=== PATIENT | female | born 1940 | race Caucasian/White ===

== ENCOUNTER 2016-11-05 11:34 | Inpatient (IN) | payer OTHER ==
[2016-11-05] MEDS ORDERED: clonazePAM 0.5 MG TAB PO PRN (12:50)
[2016-11-05] MEDS ORDERED: clonazePAM 1 MG TAB PO PRN (12:53)
[2016-11-05] MEDS ORDERED: Cyanocobalamin 1000 MCG/ML VIAL IM SCH (13:00)
[2016-11-05] MEDS ORDERED: Ondansetron ODT 4 MG TAB PO PRN (13:04)
[2016-11-05] MEDS ORDERED: Guaifenesin DM 100-10/5 ML UDCUP PO PRN (13:04)
[2016-11-05] MEDS ORDERED: Milk Of Magnesia 30 ML UDCUP PO PRN (13:04)
[2016-11-05 14:17] VITALS: BMI 22.1
[2016-11-05] MEDS: PHENobarbital 32.4 MG TAB PO SCH (20:43)
[2016-11-05] MEDS ORDERED: PHENOBARBITAL PO SCH (21:00)
--- NOTE | 2016-11-05 21:39 | HP ---
DATE OF ADMISSION: 11/05/2016 HISTORY OF PRESENT ILLNESS: Mrs. Drake is a 76-year-old very pleasant white female that I [facility]. Apparently, she was admitted to [facility] wit h multiple seizures, eventually had significant disability and weakness. She was transferred to [facility] and was there for approximately 10 days. She did much better, was able t o walk, her decided to take her home rather than sending her to a rehabilitation skilled fac ility for continued physical therapy and occupational therapy. She is able to stand basically which she left home and basically transfer. Since she has been home, she got much weaker and was unable to stand at this time. She was seen in consultation by Dr. Tapia who recommended that she go to a skilled unit for physical therapy and occupational therapy. Insurance was contacted and she is ap proved to come. PAST MEDICAL HISTORY: Significant for multiple medical problems includin. Hypertension. 2. Hypothyroidism. 3. Rheumatoid arthritis. 4. Stomach cancer. 5. B12 deficiency anemia. 6. Septal defect. 7. Mitral valve regurgitation. 8. Arthritis. 9. Seizure disorder. 10. Generalized weakness. PAST SURGICAL HISTORY: 1. Cholecystectomy. 2. Hysterectomy. 3. Bilateral cataract surgery. 4. Total knee replacement on the right, 5. Bladder suspension. 6. Left reverse total shoulder replacement 12/2014. 7. Right reverse total shoulder repair 02/05/2016. 8. Partial gastrectomy, status post stomach cancer 11/2015. 9. Cataract surgery. FAMILY HISTORY: Reveals that the patient's father had CA and at the age of 70 and he had a his tory of diabetes. The patient also has syphilitic aneurysm of the aorta. Patient's mother at age of 89 of CA, but she also had diabetes. Patient has a brother with lung cancer. SOCIAL HISTORY: Reveals the patient does not smoke, does not drink, is , does not use any re creational drugs. PRESENT MEDICATIONS: She is presently on the followin. Tylenol 500 mg q.6 hours p.r.n. 2. Amlodipine 2.5 mg each morning. 3. Aspirin 81 mg daily. 4. Clonazepam 0.5 one or two tablets OTC or sublingually at onset of seizure, not to exceed 3 mg da raffaele. 5. Plavix 75 mg. 6. Cyanocobalamin which is vitamin B12 1000 mcg IM every 28 days. 7. Phenobarbital 64 mg in the morning and 45 mg in the evening, Dilantin 125 mg per 5 mL and the pa tient gets 5 mL twice daily. 8. Florastor 250 mg daily. 9. [place] Thyroid 60 mg daily. ALLERGIES: Patient has multiple allergies include the followin. PENICILLIN. 2. KEFLEX. 3. LISINOPRIL. 4. CODEINE. 5. HYDROCODONE. 6. SIMVASTATIN. 7. CRESTOR. 8. VYTORIN. 9. REGULAR STATINS. 10. CHOLESTYRAMINE which causes her to absorb of her anti-seizure medicines and have seizures. 11. TRAMADOL, unknown reaction. 12. GABAPENTIN. 13. PREVITE RX. REVIEW OF SYSTEMS: Reveal the patient states she is fatigued, seem like she is maybe losing weight. Denies any vision changes, like double vision, loss of vision or blurry vision. Denies any signif icant change in her hearing. Denies any chest pain, racing or skipping or slow heartbeats, passing out or fainting spells. Denies any cough, cold, congestion, shortness of breath or wheezing. Denie s any nausea, vomiting, diarrhea, constipation. She does have a history of stomach cancer with stom ach resection or partial resection. Denies any difficulty with her bladder. She does complain of m usculoskeletal weakness and some muscle pain and joint pain at that time. She denies any skin probl ems including rash or lesions. She does complain of seizures, but none lately. She has significant weakness along with occasional dizziness, headache and numbness. She does have anxiety and stress, is extremely forgetful. She denies any bleeding problems, lymph node problems. Denies any signifi cant allergies. PHYSICAL EXAMINATION: GENERAL: This is a thin, well-developed, well-nourished, oriented to person, place, but not time, t hin white female in no apparent distress at this time. HEENT: Reveals normocephalic, nontraumatic cranium. Pupils are equally round. Nose and throat are slightly dry. NECK: Supple, without masses, nodes or bruits. CHEST: Clear to auscultation. No rales, rhonchi or wheezes are heard. HEART: Reveals a regular rate and rhythm, no murmurs, gallops or rubs are noted. ABDOMEN: Scaphoid, soft, nontender, without organomegaly. No rebound or guarding is noted. GENITOURINARY: Deferred. EXTREMITIES: Reveal no clubbing, cyanosis or edema. 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 The right upper extremity is weaker than the right lower extremity. The patient does have a very sl ight intention tremor. She is sensitive to light touch, temperature, vibration and proprioception. ASSESSMENT: 1. Hypertension. 2. Seizure disorder. 3. Generalized weakness. 4. Rheumatoid arthritis. 5. History of prior malignant tumor of the stomach, resected. 6. Hypothyroidism. 7. Renal mass found on CT scan 01/2015. 8. Vitamin B12 deficiency. 9. Hypercholesterolemia. 10. Hyperlipidemia. 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 12. Sensory neuropathy. 13. Generalized weakness and debility. PLAN: 1. We will consult physical therapy and occupational therapy. 2. Evaluate with Speech Therapy also. 3. Continue present medications. 4. Follow the patient closely for seizure disorder. 5. Follow the patient's thyroids. 6. Follow the patient's blood pressure. 7. Stress ulcer and decubitus prophylaxis. 8. DVT prophylaxis.
[2016-11-05 22:58] LABS: Bilirubin Negative (Negative); Blood, Urine Negative (Negative); Glucose, Urine (Dipstick) Negative (Negative); Ketone, Urine Negative (Negative); Nitrite Negative (Negative); Protein, Urine (Dipstick) Negative (Neg-Trace); RBC/HPF None Seen HPF (0-3); Urobilinogen 0.2 mg/dL (0.2-1.0); WBC/HPF None Seen HPF (0-3)
[2016-11-05 22:59] LABS: Bacteria/HPF None Seen HPF (None Seen)
[2016-11-06 05:21] LABS: #Eosinphils 0.3 thou/uL (0.0-0.7); #Lymphocytes 1.1 thou/uL (1.20-3.40); #Monocytes 0.3 thou/uL (0.11-0.59); #Neutrophils 2.1 thou/uL (1.40-6.50); %Eosinophils 8.5 % (0.0-10.0); %Lymphocytes 28.4 % (21.0-51.0); %Monocytes 8.5 % (0.0-10.0); Hematocrit 30.6 % (36.0-47.0); Mean Platelet Volume 5.8 fL (7.4-10.4)
[2016-11-06 05:42] LABS: ALT (SGPT) 26 U/L (0-55); AST (SGOT) 23 U/L (5-34); Alkaline Phosphatase 97 U/L (40-150); Anion Gap 12 mmol/L (10-20); BUN (Urea Nitrogen) 12 mg/dL (9.8-20.1); Bilirubin, Total 0.1 mg/dL (0.2-1.2); Calc. Creatinine Clearance 73 mL/min (70-130); Calcium 8.6 mg/dL (7.8-10.44); Carbon Dioxide 22 mmol/L (23-31); Chloride 110 mmol/L (98-107); Estimated GFR-MDRD Greater than 90; Globulin 2.2 g/dL (2.4-3.5); Protein, Total 4.9 g/dL (5.8-8.1)
[2016-11-06] MEDS: Saccharomyces boulardii 250 MG CAP PO SCH (08:59)
[2016-11-06] MEDS: Multivitamin W/ Minerals 1 TAB PO SCH (08:59)
[2016-11-06] MEDS: PHENobarbital 32.4 MG TAB PO SCH ×2 (09:00→21:22)
[2016-11-06] MEDS: Clopidogrel Bisulfate 75 MG TAB PO SCH (09:03)
--- NOTE | 2016-11-06 21:23 | PRG ---
DATE OF SERVICE: 11/06/2016. HISTORY OF PRESENT ILLNESS: Ms. Drake is a 76-year-old very pleasant white female who recognizes me immediately upon entering the room. She was transferred from home because she has some increase d strengthening on her strength and stability. She previously was at [facility], was seen by Dr. Tapia who recommended that she come by this Skilled Unit for physical therap y and occupational therapy. She was approved for insurance for 10 days. She previously was able to help transfer and walk before she went home for rehabilitation. Since she has been home, she has n ot been able to get up and move. So, she therefore goes to get her back and move. SUBJECTIVE: The patient states she is doing well. She is eating well. She has no complaints. She has no pain. OBJECTIVE: Vital signs this morning revealed blood pressure was 149/67, pulse ranges between 65 and 70, respirations are 18, O2 saturations 97 to 78%, temperature is 97.7. PHYSICAL EXAMINATION: GENERAL: This is a well-developed, very thin white female, in no apparent distress at this time. HEENT: Reveals normocephalic, nontraumatic cranium. Pupils are equally round and reactive. Extrao cular movements intact. Nose and throat slightly dry. NECK: Supple, without masses, nodes or bruits. CHEST: Clear to auscultation. No rales, rhonchi, wheezes are heard. CARDIOVASCULAR: Reveals a regular rate and rhythm without murmurs, gallops or rubs. ABDOMEN: Scaphoid, soft, nontender, without organomegaly, normal bowel sounds are noted. No reboun d or guarding is noted. GENITOURINARY: Deferred. EXTREMITIES: Reveal no clubbing, cyanosis or edema, but generalized weakness. NEUROLOGIC: The patient has more weakness on the right secondary to an old cerebrovascular accident . The patient does have a slight intention tremor. She also sensitive to light touch, temperature, vibration and proprioception. Vital signs done this morning revealed a white count of 4000, hemoglobin 10.1, hematocrit 30.6 with a platelet count of 198,000. LABORATORY DATA: Sodium 140, potassium 3.8, chloride 110 with a carbon dioxide of 22. BUN is 12, c reatinine 0.55 and GFR is greater than 90. Her albumin is low at 2.7 and globulin is low at 2.2. We did do a urinalysis which revealed no white cells. ASSESSMENT: 1. Hypertension. 2. Hypothyroidism. 3. Rheumatoid arthritis. 4. Stomach cancer, status post resection. 5. Vitamin B12 deficiency. 6. Septal defect. 7. Mitral valve regurgitation. 8. Arthritis. 9. Seizure disorder. 10. Generalized weakness and debility. 11. Renal mass found on CT scan of 01/20/2015. 12. Hypercholesterolemia. 13. Hyperlipidemia. 14. Megaloblastic anemia due to vitamin B12 deficiency. 15. Sensory neuropathy. PLAN: 1. The patient has been evaluated by physical therapy and occupational therapy. 2. We will continue physical therapy and occupational therapy. 3. Evaluate for speech therapy next week. 4. Continue present medications. 5. Watch the patient closely for seizure disorder. 6. Watch patient's thyroids. 7. Watch patient's blood pressure. 8. Stress ulcer and deep venous thrombosis prophylaxes. 9. Decubitus prophylaxis and care.
--- NOTE | 2016-11-07 08:58 | PRG ---
DATE OF SERVICE: 11/07/2016 HISTORY OF PRESENT ILLNESS: Ms. Drake is a very pleasant 76-year-old white female, recognizes me again this morning when I entered the room. She has no complaints, states she slept fairly well last night. She did wake up a couple of times. She realized that she was sent here for physical therapy and occupational therapy by Dr. Tapia. She is unable to walk and was transferred here so that she can start walking again. She was standin g and taking couple [facility] SUBJECTIVE: The patient states she is doing well. She has no complaints this morning. PHYSICAL EXAMINATION: VITAL SIGNS: Revealed last blood pressure was last night at bedtime was 147/67, pulse 65-67, respir ations 18, O2 sat 97%-98%, T-max was 97.7. GENERAL: This is a well-developed, well-nourished, very pleasant white female, in no apparent distr ess that is by seizure disorder. HEENT: Reveals normocephalic, nontraumatic cranium. Pupils are equally round and reactive. Extrao cular movements intact. Nose and throat slightly dry. NECK: Supple, without masses, nodes or bruits. CHEST: Clear to auscultation. No rales, rhonchi or wheezes are heard. HEART: Reveals a regular rate and rhythm without murmurs, gallops or rubs. ABDOMEN: Scaphoid, soft, nontender, without organomegaly, normal bowel sounds are noted. No reboun d or guarding is noted. GENITOURINARY: Deferred. EXTREMITIES: Reveal no clubbing, cyanosis or edema, which is generalized weakness. NEUROLOGIC: The patient has slightly more weakness on the right side secondary to old CVA. The pat ient continues to have slight intention tremor. ASSESSMENT: 1. Hypertension. 2. Hypothyroidism. 3. Rheumatoid arthritis. 4. Stomach cancer, status post resection. 5. Vitamin B12 deficiency. 6. Atrioseptal defect. 7. Mitral valve regurgitation. 8. Arthritis. 9. Seizure disorder. 10. Generalized weakness and debility. 11. Renal mass. Final CT scan on 01/20/2015. 12. Hypercholesterolemia. 13. Hyperlipidemia. 14. Megaloblastic anemia due to vitamin B12 deficiency. 15. Sensory neuropathy. PLAN: 1. Continue physical therapy and occupational therapy. 2. Evaluate for speech therapy. 3. Continue present medications. 4. Watch for seizure disorder and she is to get Klonopin if that happens. 5. Pharmacy in the nurse felt that her thyroid is being mixed with other medicines, which is not a good thing, so she gets it on an empty stomach. 6. Continue to follow the patient's blood pressure closely. 7. Follow up for stress ulcer and DVT prophylaxis. 8. Continue decubitus precautions.
[2016-11-07] MEDS: Multivitamin W/ Minerals 1 TAB PO SCH (09:06)
[2016-11-07] MEDS: PHENobarbital 32.4 MG TAB PO SCH ×2 (09:06→20:23)
[2016-11-07] MEDS: Loperamide HCl 2 MG CAP PO PRN ×2 (09:06→11:20)
[2016-11-07] MEDS: Saccharomyces boulardii 250 MG CAP PO SCH (09:06)
[2016-11-07] MEDS: Clopidogrel Bisulfate 75 MG TAB PO SCH (09:06)
[2016-11-07] MEDS: Acetaminophen 500 MG TAB PO PRN (20:24)
[2016-11-08] MEDS: Saccharomyces boulardii 250 MG CAP PO SCH (08:20)
[2016-11-08] MEDS: PHENobarbital 32.4 MG TAB PO SCH ×2 (08:20→21:28)
[2016-11-08] MEDS: Multivitamin W/ Minerals 1 TAB PO SCH (08:21)
[2016-11-08] MEDS: Clopidogrel Bisulfate 75 MG TAB PO SCH (08:21)
--- NOTE | 2016-11-08 10:50 | PRG ---
DATE OF SERVICE: 11/08/2016 HISTORY OF PRESENT ILLNESS: Ms. Drake is a 76-year-old white female that was transferred here fo r physical therapy and occupational therapy because of significant disability and weakness. The patient had a good night. She has no complaints. Her daughter is in the room. They have no co mplaints except she is having some loose stools and has Imodium ordered which she can ask for p.r.n. VITAL SIGNS: Vital signs this morning reveal blood pressure last night was 142/65, pulse 68-71, res pirations 16-20, O2 sat 95%, T-max 97.7. PHYSICAL EXAMINATION: GENERAL: This is a well-developed, well-nourished, thin white female in no apparent distress at thi s time. HEENT: Reveals normocephalic, nontraumatic cranium. Pupils are equally round and reactive. Extrao cular movements intact. Nose and throat slightly dry. NECK: Supple, without masses, nodes or bruits. LUNGS: Chest is clear to auscultation. No rales, no rhonchi, no wheezes. No cough is heard. CARDIOVASCULAR: Reveals a regular rate and rhythm without murmurs, gallops or rubs. ABDOMEN: Scaphoid, soft, nontender, without organomegaly, normal bowel sounds are noted. No reboun d or guarding is noted. : Deferred. EXTREMITIES: Reveal no clubbing, cyanosis or edema, just generalized weakness. NEUROLOGIC: The patient is slightly more weak to the right side secondary to old CVA. IMPRESSION: 1. Hypertension. 2. Hypothyroidism. 3. Rheumatoid arthritis. 4. Stomach cancer, status post resection. 5. Vitamin B12 deficiency leading to megaloblastic anemia. 6. Atrial septal defect. 7. Mitral regurgitation. 8. Arthritis. 9. Seizure disorder. 10. Generalized weakness and debility. 11. Renal mass on CT scan on 01/2015. 12. Hypercholesterolemia. 13. Hyperlipidemia. 14. Sensory neuropathy. PLAN: 1. Continue physical therapy and occupational therapy. 2. Evaluate for speech is pending. 3. Continue present medications. 4. Watch for seizure disorder. 5. Continue thyroid. 6. Wean Dilantin as able. 7. Continue phenobarbital. 8. Stress ulcer and deep venous thrombosis prophylaxis. 9. Continue decubitus precautions.
[2016-11-08] MEDS: Acetaminophen 500 MG TAB PO PRN (21:28)
[2016-11-09] MEDS: Clopidogrel Bisulfate 75 MG TAB PO SCH (08:36)
[2016-11-09] MEDS: Saccharomyces boulardii 250 MG CAP PO SCH (08:37)
[2016-11-09] MEDS: PHENobarbital 32.4 MG TAB PO SCH ×2 (08:37→21:28)
[2016-11-09] MEDS: Multivitamin W/ Minerals 1 TAB PO SCH (08:37)
--- NOTE | 2016-11-09 10:18 | PRG ---
DATE OF SERVICE: 11/09/2016 HISTORY OF PRESENT ILLNESS: Ms. Drake is a 76-year-old white female transferred here for physica l therapy, occupational therapy because of his significant debility and weakness. The patient dionisio nunez has already been up and walking approximately 15 feet with a short rest and another 15 feet whic h is good for her. She still has significant difficulty getting up. Her is down here and carey faulkner is very pleased, but states that he cannot bring her home unless she is much more independent. VITAL SIGNS: Vital signs this morning revealed blood pressure 135/65, pulse 66-70, respirations 18- 20, O2 sat 96-97%. T-max is 97.2. PHYSICAL EXAMINATION: GENERAL: This is a well-developed, very thin white female in no apparent distress at this time. HEENT: Reveals normocephalic, nontraumatic cranium. Pupils are equally round and reactive. Extrao cular movements are intact. Nose and throat slightly dry. NECK: Supple, without masses, nodes or bruits. CHEST: Clear to auscultation. No rales, rhonchi or wheezes are heard. CARDIOVASCULAR: Reveals a regular rate and rhythm without murmurs, gallops or rubs. ABDOMEN: Soft, nontender, without organomegaly, normal bowel sounds are noted. No rebound or guard ing is noted. : Deferred. EXTREMITIES: Reveal no clubbing, cyanosis or edema, just generalized weakness. NEUROLOGIC: The patient is still weak, slightly weaker on the right side than the left side. IMPRESSION: 1. Hypertension. 2. Hypothyroidism. 3. Rheumatoid arthritis. 4. Stomach cancer, status post resection. 5. Vitamin B12 deficiency leading to megaloblastic anemia. 6. Atrial septal defect. 7. Mitral regurgitation. 8. Arthritis. 9. Seizure disorder. 10. Generalized weakness and debility. 11. Renal mass on CT scan on 01/2015. 12. Hypercholesterolemia. 13. Hyperlipidemia. 14. Sensory neuropathy. PLAN: 1. Continue physical therapy and occupational therapy. 2. Continue DVT and stress ulcer prophylaxis. 3. Continue decubitus precautions. 4. Continue present medications. 5. Watch out for seizure disorder. 6. Continue thyroid medications. 7. Wean Dilantin as able. 8. Continue phenobarbital. 9. Continues with patient being out of bed as much as possible.
[2016-11-09] MEDS: Acetaminophen 500 MG TAB PO PRN (21:28)
[2016-11-10] MEDS: Clopidogrel Bisulfate 75 MG TAB PO SCH (09:36)
[2016-11-10] MEDS: PHENobarbital 32.4 MG TAB PO SCH ×2 (09:36→21:40)
[2016-11-10] MEDS: Multivitamin W/ Minerals 1 TAB PO SCH (09:36)
[2016-11-10] MEDS: Saccharomyces boulardii 250 MG CAP PO SCH (09:38)
--- NOTE | 2016-11-10 11:14 | PRG ---
DATE OF SERVICE: 11/10/2016 SUBJECTIVE: Ms. Drake is a 76-year-old white female transferred here for physical therapy, occup ational therapy because of her extreme weakness. She has been up walking about 60 feet yesterday. She actually is doing very well. She still has difficulty and is 2 person assist getting up. Her h usband is pleased, but he is not able to take her home unless she can get a 1 person assist for gett ing up. VITAL SIGNS: Blood pressure this morning was 162/71, pulse 66-71, respirations 18-20, O2 sat 97-98% , T-max was 98.5. PHYSICAL EXAMINATION: GENERAL: This is a well-developed, thin white female in no apparent distress at this time. HEENT: Reveals normocephalic, nontraumatic cranium. Pupils are equally round and reactive. Extrao cular movements intact. Nose and throat slightly dry. NECK: Supple, without masses, nodes or bruits. CHEST: Clear to auscultation. No rales, rhonchi or wheezes are heard. CARDIOVASCULAR: Reveals a regular rate and rhythm without murmurs, gallops or rubs. ABDOMEN: Soft, nontender, without organomegaly, normal bowel sounds are noted. No rebound or guard ing is noted. : Deferred. EXTREMITIES: Reveal no clubbing, cyanosis or edema. Just generalized weakness. IMPRESSION: 1. Hypertension. 2. Hypothyroidism. 3. Rheumatoid arthritis. 4. Stomach cancer, status post resection. 5. Vitamin B12 deficiency leading to megaloblastic anemia. 6. Atrial septal defect. 7. Mitral regurgitation. 8. Arthritis. 9. Seizure disorder. 10. Generalized weakness and debility. 11. Renal mass on CT scan 01/2015. 12. Hypercholesterolemia. 13. Hyperlipidemia. 14. Sensory neuropathy. PLAN: 1. Continue physical therapy and occupational therapy. 2. Continue DVT and stress ulcer prophylaxis. 3. Continue decubitus precautions. 4. Continue present medications. 5. Watch out for seizure disorder. 6. Continue thyroid medications. 7. Wean Dilantin as able. 8. We will continue phenobarbital. 9. Continue the patient being out of bed as much as possible.
[2016-11-11] MEDS: Clopidogrel Bisulfate 75 MG TAB PO SCH (08:33)
[2016-11-11] MEDS: Saccharomyces boulardii 250 MG CAP PO SCH (08:33)
[2016-11-11] MEDS: Multivitamin W/ Minerals 1 TAB PO SCH (08:34)
[2016-11-11] MEDS: PHENobarbital 32.4 MG TAB PO SCH ×2 (08:34→21:21)
[2016-11-11] MEDS: Loperamide HCl 2 MG CAP PO PRN ×2 (08:35→10:30)
--- NOTE | 2016-11-11 13:30 | PRG ---
DATE OF ADMISSION: 11/05/2016 DATE OF SERVICE: 11/11/2016 HISTORY OF PRESENT ILLNESS: Ms. Drake is a 76-year-old white female that was at [facility] for physical therapy and occupational therapy. She was discharged home, but she recommen d to go to [facility]. Her decided to take her home. He was unable to help her and she went from standing, walking to not being able to stand. This morning, she was stood with a max assist, but was able to walk and take several feet and she is in the room right now with physical therapy. Her complains that she is having some loose stools a couple this morning. She is incontinen t and does not feel when she has a bowel movement. OBJECTIVE: There are no other complaints except for loose stools. VITAL SIGNS: Reveal blood pressure this morning 147/67, pulse 66-77, respirations 18-20, O2 sat 97- 98%, temperature 97.5. GENERAL: This is a well-developed, well-nourished, somewhat confused white female in no apparent di stress at this time. HEENT: Reveals normocephalic, nontraumatic cranium. Pupils are equally round and reactive. Extrao cular movements intact. Nose and throat slightly dry. NECK: Supple, without masses, nodes or bruits. CHEST: Clear to auscultation. No rales, rhonchi or wheezes are heard. CARDIOVASCULAR: Reveals a regular rate and rhythm without murmurs, gallops or rubs. ABDOMEN: Soft, nontender, without organomegaly, normal bowel sounds are noted, slightly hyperactive bowel sounds. No rebound or guarding is noted. : Deferred. EXTREMITIES: Reveal no clubbing, cyanosis or edema displaying generalized weakness. IMPRESSION: 1. Hypertension. 2. Hypothyroidism. 3. Loose stools that are pasty with fecal incontinence. 4. Rheumatoid arthritis. 5. Stomach cancer, status post resection. 6. B12 deficiency, leading to megaloblastic anemia. 7. Atrial septal defect. 8. Mitral valve regurgitation. 9. Arthritis. 10. Seizure disorder. 11. Generalized weakness and debility. 12. Renal mass and CT scan. 13. Hypercholesterolemia. 14. Hyperlipidemia. 15. Sensory neuropathy. PLAN: 1. We will decrease her Dilantin 125 every evening for 3 nights, then stop it completely Dr. Jodi galdamez anted us to completely stop that. 2. Continue physical therapy and occupational therapy. 3. Continue deep venous thrombosis and stress ulcer prophylaxis. 4. Continue decubitus precautions. 5. Continue other medications. 6. Watch out for seizure disorder. 7. Continue thyroid medication. 8. Wean Dilantin as able. 9. Continue phenobarbital. 10. Keep the patient as that much as possible.
[2016-11-12 06:22] LABS: ALT (SGPT) 29 U/L (0-55); AST (SGOT) 23 U/L (5-34); Alkaline Phosphatase 103 U/L (40-150); Anion Gap 10 mmol/L (10-20); BUN (Urea Nitrogen) 14 mg/dL (9.8-20.1); Bilirubin, Total 0.1 mg/dL (0.2-1.2); Calc. Creatinine Clearance 65 mL/min (70-130); Calcium 8.8 mg/dL (7.8-10.44); Carbon Dioxide 24 mmol/L (23-31); Chloride 111 mmol/L (98-107); Estimated GFR-MDRD Greater than 90; Globulin 2.5 g/dL (2.4-3.5); Protein, Total 5.2 g/dL (5.8-8.1)
[2016-11-12] MEDS: Multivitamin W/ Minerals 1 TAB PO SCH (08:55)
[2016-11-12] MEDS: PHENobarbital 32.4 MG TAB PO SCH ×2 (08:56→20:34)
[2016-11-12] MEDS: Clopidogrel Bisulfate 75 MG TAB PO SCH (08:56)
[2016-11-12] MEDS: Saccharomyces boulardii 250 MG CAP PO SCH (08:56)
[2016-11-12] MEDS: Loperamide HCl 2 MG CAP PO PRN (08:58)
[2016-11-13] MEDS: Saccharomyces boulardii 250 MG CAP PO SCH (08:31)
[2016-11-13] MEDS: Clopidogrel Bisulfate 75 MG TAB PO SCH (08:32)
[2016-11-13] MEDS: Multivitamin W/ Minerals 1 TAB PO SCH (08:32)
[2016-11-13] MEDS: PHENobarbital 32.4 MG TAB PO SCH ×2 (08:32→21:41)
--- NOTE | 2016-11-13 13:04 | PRG ---
DATE OF SERVICE: 11/13/2016. SUBJECTIVE: Ms. Drake is doing well, resting comfortably, remains not oriented to place or perso n. Her is in the room. OBJECTIVE: VITAL SIGNS: She is afebrile, heart rate is 63, respirations are 20, blood pressure is 138/65. CARDIOVASCULAR: S1, S2 plus. RESPIRATORY: Normal vesicular breath sounds. ABDOMEN: Soft, nontender, bowel sounds heard in all quadrants. EXTREMITIES: Without cyanosis or clubbing. She is lying in bed with her shoes on and when I ask he r, she says she is ready for therapy. LABORATORY VALUES: None done recently. IMPRESSION: 1. Persistent deconditioning. 2. Seizure disorder. 3. Renal mass, on CT scan. 4. Dyslipidemia. 5. Hypertension. 6. Hypothyroidism. 7. Rheumatoid arthritis. 8. B12 deficiency. PLAN: 1. Continue physical therapy. 2. Nutritional support. 3. DVT and stress ulcer prophylaxes. 4. Decubitus precautions. 5. Poor long-term prognosis for her to be able to return home and be independent. Discussed with cassidy lyons patient and in detail. We will order her B12, will she supposed to get once a month.
[2016-11-14] MEDS: Multivitamin W/ Minerals 1 TAB PO SCH (08:38)
[2016-11-14] MEDS: Saccharomyces boulardii 250 MG CAP PO SCH (08:38)
[2016-11-14] MEDS: PHENobarbital 32.4 MG TAB PO SCH ×2 (08:39→21:10)
[2016-11-14] MEDS: Clopidogrel Bisulfate 75 MG TAB PO SCH (08:40)
[2016-11-14] MEDS: Loperamide HCl 2 MG CAP PO PRN ×2 (11:55→21:09)
--- NOTE | 2016-11-14 15:35 | PRG ---
DATE OF SERVICE: 11/14/2016. SUBJECTIVE: Ms. Drake is sitting in her wheelchair. She had her lunch. She denies any complain ts, pleasantly, confused. is in the room. No concerns. OBJECTIVE: VITAL SIGNS: She is afebrile, heart rate is 63, respiratory rate 20, blood pressure is 130/60. CARDIOVASCULAR: S1, S2 plus. RESPIRATORY: Normal vesicular breath sounds. ABDOMEN: Soft, nontender, bowel sounds heard in all quadrants. EXTREMITIES: Without cyanosis or clubbing. IMPRESSION: 1. Seizure disorder. 2. Generalized weakness. 3. Cognitive deficits. 4. Hypertension. 5. Hypothyroidism. 6. Rheumatoid arthritis. PLAN: 1. Continue current medications. 2. Nutritional support. 3. DVT and stress ulcer prophylaxes. 4. Seizure precautions. 5. Routine laboratory values. 6. Dr. Evita Rosa back tonight.
[2016-11-15] MEDS: Multivitamin W/ Minerals 1 TAB PO SCH (09:27)
[2016-11-15] MEDS: Saccharomyces boulardii 250 MG CAP PO SCH (09:27)
[2016-11-15] MEDS: Clopidogrel Bisulfate 75 MG TAB PO SCH (09:27)
[2016-11-15] MEDS: PHENobarbital 32.4 MG TAB PO SCH ×2 (09:27→20:25)
[2016-11-15] MEDS: Loperamide HCl 2 MG CAP PO PRN (13:07)
--- NOTE | 2016-11-15 23:50 | PRG ---
DATE OF SERVICE: 11/15/2016 HISTORY OF PRESENT ILLNESS: The patient is a 76-year-old white female that was at the [facility] a nd went home. She was unable to get any stronger and actually became much weaker, and her d ecided to take her to [facility] for physical therapy and occupational therapy. She has been max assist for even standing and now she is beginning to walk much better. She has significant imp rovement in her strength, but she still has some confusion and needs cuing provided. She has no com plaints today. PHYSICAL EXAMINATION: VITAL SIGNS: Blood pressure this morning 157/65, pulse 67-80, respirations 18-20, and O2 sat 95% to 98%. T-max is 97.6. GENERAL: This is a well-developed, well-nourished, thin white female in no apparent distress at thi s time. HEENT: Reveals normocephalic, nontraumatic cranium. Pupils are equally round and reactive. Extrao cular movements intact. Nose and throat slightly dry. NECK: Supple, without masses, nodes or bruits. LUNGS: Chest clear to auscultation. No rales, rhonchi or wheezes are heard. CARDIOVASCULAR: Reveals a regular rate and rhythm without murmurs, gallops or rubs. ABDOMEN: Soft, nontender, without organomegaly, normal bowel sounds are noted. No rebound or guard ing is noted. GENITOURINARY: Deferred. EXTREMITIES: Reveal no clubbing, cyanosis or edema. IMPRESSION: 1. Hypertension. 2. Hypothyroidism. 3. Loose stools that are pasty with fecal incontinence. 4. Rheumatoid arthritis. 5. Stomach cancer, status post resection. 6. 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 7. Atrial septal defect. 8. Mitral valve regurg. 9. Arthritis. 10. Seizure disorder. 11. Generalized weakness and debility. 12. Renal mass on CT scan. 13. Hypercholesterolemia. 14. Hyperlipidemia. 15. Sensory neuropathy. PLAN: 1. Continue physical therapy and occupational therapy. 2. Continue DVT and stress ulcer prophylaxis. 3. Continue decubitus precautions. 4. Watch out for seizures. 5. Continue thyroid medication. 6. Wean Dilantin as able. 7. Continue phenobarbital. 8. Keep the patient as active as possible.
[2016-11-16] MEDS: Clopidogrel Bisulfate 75 MG TAB PO SCH (08:51)
[2016-11-16] MEDS: PHENobarbital 32.4 MG TAB PO SCH ×2 (08:51→20:42)
[2016-11-16] MEDS: Saccharomyces boulardii 250 MG CAP PO SCH (08:51)
[2016-11-16] MEDS: Loperamide HCl 2 MG CAP PO PRN (08:51)
[2016-11-16] MEDS: Multivitamin W/ Minerals 1 TAB PO SCH (08:52)
--- NOTE | 2016-11-16 10:04 | PRG ---
DATE OF SERVICE: 11/16/2016 HISTORY OF PRESENT ILLNESS: The patient is a 76-year-old white female that had significant weakness and debility and was eventually transferred to [facility]. She was able to get up and start moving around and her decided to take her home. She went home and was not encoura ged to do much exercise. Eventually, she was max assist and could not even get up and walk. She ac tually was transferred back to [facility] for physical therapy and cert occupational therapy asst apy. She seems to be doing much better, along with her memory and her bowels. She has no complaint s today. She is found sitting in the wheelchair. VITAL SIGNS: Vital signs reveal blood pressure this morning 107/68, pulse 71-80, respirations 18-20 , O2 saturation 95-98%. T-max is 97.8. PHYSICAL EXAMINATION: GENERAL: This is a well-developed, well-nourished, very pleasant, thin white female in no apparent distress at this time. HEENT: Reveals normocephalic, nontraumatic cranium. Pupils are equally round and reactive. Extrao cular movements intact. Nose and throat slightly dry. NECK: Supple, without masses, nodes or bruits. CHEST: Clear to auscultation. No rales, no rhonchi, no wheezes are heard. CARDIOVASCULAR: Reveals a regular rate and rhythm without murmurs, gallops or rubs. ABDOMEN: Soft, nontender, without organomegaly, normal bowel sounds are noted. No rebound or guard ing is noted. : Deferred. EXTREMITIES: Reveal no clubbing, cyanosis or edema, just generalized weakness. IMPRESSION: 1. Hypertension. 2. Hypothyroidism. 3. Pasty loose stools with fecal incontinence. 4. Rheumatoid arthritis. 5. Stomach cancer, status post resection. 6. 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 7. Atrial septal defect. 8. Mitral valve regurgitation. 9. Arthritis. 10. Seizure disorder. 11. Generalized weakness and debility. 12. Renal mass on CT scan. 13. Hypercholesterolemia. 14. Hyperlipidemia. 15. Sensory neuropathy. PLAN: 1. Continue physical therapy and occupational therapy. 2. Continued DVT and stress ulcer prophylaxis. 3. Continue decubitus precautions. 4. Watch out for seizures. 5. Continue thyroid medicine. 6. Wean Dilantin as able. 7. Continue phenobarbital. 8. Keep the patient as active as possible.
[2016-11-17] MEDS: Saccharomyces boulardii 250 MG CAP PO SCH (08:18)
[2016-11-17] MEDS: PHENobarbital 32.4 MG TAB PO SCH ×2 (08:18→20:03)
[2016-11-17] MEDS: Clopidogrel Bisulfate 75 MG TAB PO SCH (08:18)
[2016-11-17] MEDS: Multivitamin W/ Minerals 1 TAB PO SCH (08:19)
--- NOTE | 2016-11-17 18:21 | PRG ---
DATE OF SERVICE: 11/17/2016 DATE OF ADMISSION: 11/05/2016 HISTORY OF PRESENT ILLNESS: The patient is a 76-year-old white female with significant weakness, de bility, was admitted to [facility] for physical therapy and occupational therapy. She improved sig nificantly and was discharged, but the wanted to bring her home. She was discharged home an d they were unable to do physical therapy. The patient became much weaker, unable to get up or wanda d up, or become at all, and was eventually transferred back to [facility] for physical therapy and occupational therapy. complained that she has been doing very well, but complains yesterday she had a bad day and wants to put her on some Xanax or Valium, and I told him that if we did that, she would do any thera py so since she is somewhat depressed and yesterday was crying, we will start her on Zoloft 50 mg ev zhane morning. She has no complaints. PHYSICAL EXAMINATION: VITAL SIGNS: Blood pressure 162/70, pulse 68-82, respirations 20, O2 sat 78%, temperature max. GENERAL: This is a well-developed, well-nourished, white female in no apparent distress at this [facility] e. HEENT: Reveals normocephalic, nontraumatic cranium. Pupils are equally round and reactive. Extrao cular movements intact. Nose and throat slightly dry. NECK: Supple, without masses, nodes or bruits. LUNGS: Chest is clear to auscultation. No rales, rhonchi or wheezes are heard. Breath sounds some times are shallow. CARDIOVASCULAR: Reveals a regular rate and rhythm without murmurs, gallops or rubs. ABDOMEN: Slightly obese, soft, nontender, without organomegaly. Normal bowel sounds. No rebound o r guarding is noted. GENITOURINARY: Deferred. EXTREMITIES: Reveal no clubbing, cyanosis or edema. IMPRESSION: 1. Hypertension. 2. Hypothyroidism. 3. Pasty loose stools occasionally. 4. Rheumatoid arthritis. 5. Stomach cancer, status post resection. 6. B12 deficiency, leading to megaloblastic anemia. 7. Atrial septal defect. 8. Mitral valve regurgitation. 9. Arthritis. 10. Seizure disorder. 11. Generalized weakness and debility. 12. Renal mass on CT. 13. Hypercholesterolemia. 14. Hyperlipidemia. 15. Sensory neuropathy. PLAN: 1. Continue PT and OT. 2. Continue DVT and stress ulcer prophylaxis. 3. Continue decubitus precautions. 4. Continue to watch for seizures. 5. Continue thyroid medicine. 6. Wean Dilantin as able. 7. Continue phenobarbital. 8. Keep the patient as active as possible.
[2016-11-18] MEDS: PHENobarbital 32.4 MG TAB PO SCH ×2 (09:47→20:41)
[2016-11-18] MEDS: Multivitamin W/ Minerals 1 TAB PO SCH (09:48)
[2016-11-18] MEDS: Clopidogrel Bisulfate 75 MG TAB PO SCH (09:48)
[2016-11-18] MEDS: Saccharomyces boulardii 250 MG CAP PO SCH (09:48)
[2016-11-18] MEDS: Acetaminophen 500 MG TAB PO PRN (20:41)
--- NOTE | 2016-11-18 23:06 | PRG ---
DATE OF ADMISSION: 11/05/2016 DATE OF PROGRESS NOTE: 11/18/2016 HISTORY OF PRESENT ILLNESS: The patient is a 76-year-old white female with significant debility and weakness. She admitted to [facility] initially for physical therapy and occupational therapy. Sh e was status epilepticus with seizures. She was significantly improved and was supposed to be disch arged to swing bed, but the patient's brought her home where she did very poorly. By the ti me she got back to swing bed, she was unable to stand. She was transferred to [facility] under my care and we have continued with physical therapy and occupational therapy. She is mu ch improved. The patient has no complaints today. PHYSICAL EXAMINATION: VITAL SIGNS: Blood pressure this morning 135/58, pulse 67-84, respirations 18-20, O2 sat 96-98%, an d T-max is 97.1. GENERAL: This is a well-developed, thin white female, in no apparent distress. At this time, she a ctually is much improved. She is oriented to person and place today. HEENT: Reveals normocephalic, nontraumatic cranium. Pupils are equally round and reactive. Extrao cular movements are intact. Nose and throat are moist today. NECK: Supple, without masses, nodes or bruits. LUNGS: Chest is clear to auscultation. No rales, rhonchi, wheezes, or cough heard. HEART: Regular rate and rhythm without murmurs, gallops or rubs. ABDOMEN: Obese, soft, nontender, without organomegaly. Normal bowel sounds are noted. No rebound or guarding is noted. GENITOURINARY: Deferred. EXTREMITIES: No clubbing, cyanosis or edema. IMPRESSION: 1. Hypertension 2. Hypothyroidism. 3. Generalized weakness. 4. Rheumatoid arthritis. 5. Stomach cancer, status post resection. 6. B12 deficiency with megaloblastic anemia. 7. Atrial septal defect. 8. Mitral valve regurgitation. 9. Arthritis. 10. Seizure disorder. 11. Generalized weakness and debility. 12. Renal mass on CT. 13. Hypercholesterolemia. 14. Hyperlipidemia. 15. Sensory neuropathy. PLAN: 1. Continue physical therapy and occupational therapy. 2. Continue DVT and stress ulcer prophylaxis. 3. Continue decubitus precautions. 4. Watch for seizures. 5. Continue thyroid medicine. 6. Wean Dilantin as able. 7. Continue phenobarbital. 8. Keep the patient as active as possible.
[2016-11-19] MEDS: Saccharomyces boulardii 250 MG CAP PO SCH (08:37)
[2016-11-19] MEDS: PHENobarbital 32.4 MG TAB PO SCH ×2 (08:37→21:25)
[2016-11-19] MEDS: Multivitamin W/ Minerals 1 TAB PO SCH (08:37)
[2016-11-19] MEDS: Clopidogrel Bisulfate 75 MG TAB PO SCH (08:37)
--- NOTE | 2016-11-19 18:25 | PRG ---
DATE OF SERVICE: 11/19/2016 SUBJECTIVE: Ms. Drake is a very pleasant 76-year-old white female that was found sitting outside with her daughter talking. She states she had a good day. She had good physical therapy and she w alked quite a bit. At time she is confused and sometimes confabulates. She has no complaints today . OBJECTIVE: VITAL SIGNS: Revealed, blood pressure today was 145/68, pulse 61-87, respirations 20, O2 saturation 96-97%, temperature max is 97.2. GENERAL: This is a well-developed, well-nourished, very pleasant white female in no apparent distre ss at this time. HEENT: Reveals normocephalic, nontraumatic cranium. Pupils are equally round and reactive. Extrao cular movements intact. Nose and throat slightly dry. NECK: Supple, without masses, nodes or bruits. CHEST: Clear to auscultation. No rales, rhonchi or wheezes are heard. HEART: Reveals a regular rate and rhythm without murmurs, gallops or rubs. ABDOMEN: Soft, nontender without organomegaly, normal bowel sounds are noted. No rebound or guardi ng. GENITOURINARY: Deferred. EXTREMITIES: Reveal no clubbing, cyanosis or edema. Much better improved walking, stamina and shree nce. IMPRESSION: 1. Hypertension. 2. Hypothyroidism. 3. Generalized weakness. 4. Rheumatoid arthritis. 5. Stomach cancer, status post resection. 6. B12 deficiency with megaloblastic anemia. 7. Atrial septal defect. 8. Mitral valve regurgitation. 9. Arthritis. 10. Seizure disorder. 11. Generalized weakness and debility. 12. Renal mass on CT. 13. Hypercholesterolemia. 14. Hyperlipidemia. 15. Sensory neuropathy. PLAN: 1. Continue physical therapy and occupational therapy. 2. Continue DVT and stress ulcer prophylaxis. 3. Continue decubitus precautions. 4. Watch for seizures. 5. Continue thyroid medicine. 6. Wean Dilantin as able. 7. Continue phenobarbital. 8. Labs tomorrow morning. 9. Keep the patient out of bed and active as possible.
[2016-11-20 05:43] LABS: #Eosinphils 0.3 thou/uL (0.0-0.7); #Lymphocytes 1.3 thou/uL (1.20-3.40); #Monocytes 0.3 thou/uL (0.11-0.59); #Neutrophils 1.5 thou/uL (1.40-6.50); %Basophils 0.9 % (0.0-1.0); %Eosinophils 9.6 % (0.0-10.0); %Lymphocytes 37.9 % (21.0-51.0); %Monocytes 7.4 % (0.0-10.0); Mean Platelet Volume 5.8 fL (7.4-10.4); Red Blood Cell (RBC) Count 3.75 mill/uL (4.20-5.40); White Blood Cell (WBC) Count 3.5 thou/uL (4.8-10.8)
[2016-11-20 05:59] LABS: ALT (SGPT) 43 U/L (0-55); AST (SGOT) 31 U/L (5-34); Alkaline Phosphatase 98 U/L (40-150); Anion Gap 12 mmol/L (10-20); BUN (Urea Nitrogen) 17 mg/dL (9.8-20.1); Bilirubin, Total 0.2 mg/dL (0.2-1.2); Calc. Creatinine Clearance 66 mL/min (70-130); Calcium 8.9 mg/dL (7.8-10.44); Carbon Dioxide 21 mmol/L (23-31); Chloride 113 mmol/L (98-107); Estimated GFR-MDRD Greater than 90; Globulin 2.5 g/dL (2.4-3.5); Protein, Total 5.4 g/dL (5.8-8.1)
[2016-11-20] MEDS: PHENobarbital 32.4 MG TAB PO SCH ×2 (09:25→21:09)
[2016-11-20] MEDS: Clopidogrel Bisulfate 75 MG TAB PO SCH (09:27)
[2016-11-20] MEDS: Saccharomyces boulardii 250 MG CAP PO SCH (09:27)
[2016-11-20] MEDS: Loperamide HCl 2 MG CAP PO PRN ×3 (09:27→15:26)
[2016-11-20] MEDS: Multivitamin W/ Minerals 1 TAB PO SCH (09:27)
--- NOTE | 2016-11-20 12:03 | PRG ---
DATE OF ADMISSION: 11/05/2016 DATE OF SERVICE: 11/20/2016 HISTORY OF PRESENT ILLNESS: The patient is a 76-year-old white female that had extreme weakness wit h rheumatoid arthritis. She has some confusion, has difficulty at times following directions, since she has been transferred to [facility]. She has actually done exceedingly well . She has no complaints today. I had discussion with her and he informed me that her insuranc e has paid up to Tuesday and then on Tuesday, she is going to [facility], but he is afraid to tell he r that, so he asked me to tell her. The patient did not take the news very well. She was set on going home, but I informed her that she really need to get better, because last time she went [place] e she did not get therapy at all. Her did not give her any therapy and, so she regressed an d actually was doing terribly when she got here, initially she was barely able to sit up. Now, she is standing, walking and doing much better. She did cry about that, but eventually, we are able to make her understand that it would be best for her, so when she goes home, she can stay home. PHYSICAL EXAMINATION: VITAL SIGNS: Blood pressure this morning 169/73, pulse 69-71, respirations 18, O2 sat 97%. T-max 9 8.1. GENERAL: This is a well-developed, well-nourished, white female, in no apparent distress at this ti mo. HEENT: Reveals normocephalic, nontraumatic cranium. Pupils are equally round and reactive to light . Extraocular muscles are intact. Nose and throat are slightly dry. NECK: Supple, without masses, nodes or bruits. LUNGS: Chest is clear to auscultation. No rales, rhonchi or wheezes are heard. CARDIOVASCULAR: Heart reveals a regular rate and rhythm without murmurs, gallops or rubs. ABDOMEN: Soft, nontender, without organomegaly, normal bowel sounds are noted. No rebound or guard ing is noted. GENITOURINARY: Deferred. EXTREMITIES: No clubbing, cyanosis or edema. The patient is much improved with her walking, stamin a, and balance. LABORATORIES DATA: Laboratories this morning revealed a white count of 3500, hemoglobin 10.5, hemat ocrit 33.0, platelet count is 226,000. Sodium of 142, potassium 3.8, chloride 113, carbon dioxide 2 1 with a BUN of 17, creatinine 0.61. Her sugar was 98, her BNP was 133. Her prealbumin has gone fr om 5-18.0. Urinalysis was unremarkable. Her last phenobarbital level was 19.7 and we have stopped her Dilantin. IMPRESSION: 1. Hypertension. 2. Hypothyroidism. 3. Generalized weakness. 4. Rheumatoid arthritis. 5. Stomach cancer, status post resection. 6. B12 deficiency with megaloblastic anemia. 7. Atrial septal defect. 8. Mitral valve regurgitation. 9. Arthritis. 10. Seizure disorder. 11. Generalized weakness. 12. Debility. 13. Renal mass on CT. 14. Hypercholesterolemia. 15. Hyperlipidemia. 16. Sensory neuropathy. PLAN: 1. The patient has been asked about her last B12 injection, interested in her B12 level and we may try to switch over to oral B12. 2. Continue physical therapy and occupational therapy. 3. Continue DVT and stress ulcer prophylaxis. 4. Continue decubitus precautions. 5. Watch for seizures. 6. Continue thyroid medicine. 7. Wean Dilantin as able. 8. Continue phenobarbital. 9. We will do a B12 level tomorrow. 10. Keep the patient out of bed as much as possible.
[2016-11-21] MEDS: Saccharomyces boulardii 250 MG CAP PO SCH (09:27)
[2016-11-21] MEDS: PHENobarbital 32.4 MG TAB PO SCH (09:28)
[2016-11-21] MEDS: Loperamide HCl 2 MG CAP PO PRN (09:28)
[2016-11-21] MEDS: Clopidogrel Bisulfate 75 MG TAB PO SCH (09:28)
[2016-11-21] MEDS: Multivitamin W/ Minerals 1 TAB PO SCH (09:29)
--- NOTE | 2016-11-21 10:39 | PRG ---
DATE OF PROGRESS NOTE: 11/21/2016. SUBJECTIVE: Ms. Drake is a very pleasant 76-year-old white female with extreme weakness and rheu matoid arthritis. She has begin to continues to be cleared and she knows she is oriented to person, place and time today. She has no complaints today. She is worried about going to the next place f or her physical therapy is. PHYSICAL EXAMINATION: VITAL SIGNS: Today revealed blood pressure is 147/69, pulse 63-75, respirations 18-20, O2 saturatio n 97% on room air, temperature 97.1. GENERAL: This is a well-developed, well-nourished, very pleasant white female, in no apparent distr ess at this time. HEENT: Reveals normocephalic, nontraumatic cranium. Pupils are equally round and reactive. Nose a nd throat slightly dry. NECK: Supple, without masses, nodes or bruits. CHEST: Clear to auscultation. No rales, rhonchi or wheezes are heard. CARDIOVASCULAR: Reveals a regular rate and rhythm without murmurs, gallops or rubs. ABDOMEN: Soft, nontender, without organomegaly, normal bowel sounds are noted. No rebound or guard ing is noted. GENITOURINARY: Deferred. EXTREMITIES: Revealed no clubbing, cyanosis or edema. The patient continues to improve slowly with walking stamina in her balance. IMPRESSION: 1. Hypertension. 2. Hypothyroidism. 3. Generalized weakness. 4. Rheumatoid arthritis. 5. Stomach cancer, status post resection. 6. B12 deficiency with megaloblastic anemia. 7. Atrial septal defect. 8. Mitral regurgitation. 9. Arthritis. 10. Seizure disorder. 11. Generalized weakness. 12. Debility. 13. Renal mass on CT. 14. Hypercholesterolemia. 15. Hypothyroidism. 16. Sensory neuropathy. PLAN: 1. B12 levels pending. 2. Continue physical therapy and occupational therapy. 3. Continue deep venous thrombosis and stress ulcer prophylaxes. 4. Continue decubitus precautions. 5. Watch for seizures. The patient is off Dilantin. 6. Continue thyroid medicine. 7. Continue phenobarbital. 8. Keep the patient out of bed as much as possible.
[2016-11-22] MEDS: Clopidogrel Bisulfate 75 MG TAB PO SCH (08:34)
[2016-11-22] MEDS: Multivitamin W/ Minerals 1 TAB PO SCH (08:34)
[2016-11-22] MEDS: PHENobarbital 32.4 MG TAB PO SCH ×2 (08:35→20:50)
[2016-11-22] MEDS: Saccharomyces boulardii 250 MG CAP PO SCH (08:35)
--- NOTE | 2016-11-22 11:01 | PRG ---
DATE OF SERVICE: 11/22/2016 HISTORY: Ms. Drake is a 76-year-old white female that has extreme weakness and rheumatoid arthri tis. She has some mental deficits at this time also. She is oriented to person and place, but not time today. She knows she is going to be leaving tomorrow after physical therapy. PHYSICAL EXAMINATION: VITAL SIGNS: Today reveal blood pressure is 156/70, pulse 58-70, respirations 16-20, O2 sat 97-98% on room air, temperature max 98.1. GENERAL: This is a well-developed, well-nourished, white female in no apparent distress at this [facility]. HEENT: Reveals normocephalic, nontraumatic cranium. Pupils are equally round and reactive. Extrao cular movements intact. Nose and throat slightly dry. NECK: Supple, without masses, nodes or bruits. CHEST: Clear to auscultation. No rales, rhonchi or wheezes, or cough is heard. CARDIOVASCULAR: Reveals a regular rate and rhythm without murmurs, gallops or rubs. ABDOMEN: Obese, soft, nontender, without organomegaly. Normal bowel sounds are noted. No rebound or guarding is noted. : Deferred. EXTREMITIES: Reveal no clubbing, cyanosis or edema, just generalized weakness. The patient was fou nd walking in the joshi today and her stamina and balance are much improved. IMPRESSION: 1. Hypertension. 2. Hypothyroidism. 3. Generalized weakness. 4. Rheumatoid arthritis. 5. Stomach cancer, status post resection. 6. B12 deficiency megaloblastic anemia. 7. Atrial septal defect. 8. Mitral regurg. 9. Arthritis. 10. Seizure disorder. 11. Generalized weakness. 12. Debility. 13. Renal mass on CT. 14. Hypercholesterolemia. 15. Hypothyroidism. 16. Sensory neuropathy. PLAN: 1. B12 level is still pending. 2. Continue physical therapy and occupational therapy. 3. Continue DVT and stress ulcer prophylaxis. 4. Continue decubitus precautions. 5. Watch for seizures. 6. The patient was offered Dilantin, her phenobarbital level was 13+. 7. Continue thyroid medicine. 8. Continue Phenobarbital. 9. Keep the patient out of bed as much as possible.
[2016-11-23] MEDS: Loperamide HCl 2 MG CAP PO PRN (09:24)
[2016-11-23] MEDS: Saccharomyces boulardii 250 MG CAP PO SCH (09:24)
[2016-11-23] MEDS: Clopidogrel Bisulfate 75 MG TAB PO SCH (09:25)
[2016-11-23] MEDS: PHENobarbital 32.4 MG TAB PO SCH ×2 (09:25→21:26)
[2016-11-23] MEDS: Multivitamin W/ Minerals 1 TAB PO SCH (09:26)
--- NOTE | 2016-11-23 10:10 | PRG ---
DATE OF SERVICE: 11/23/2016 SUBJECTIVE: Ms. Drake is a 76-year-old white female with extreme weakness of rheumatoid arthriti s and some mental deficits that come and go. She actually has done very well today. She gets up ou t of the wheel chair and walks with minimal assistance. She has no complaints today, but she knows she is going to [facility] tomorrow for continued physical therapy and occupational therapy. PHYSICAL EXAMINATION: VITAL SIGNS: Reveal blood pressure today is 172/77, pulse 70-76, respirations 18, O2 sat 96% on tana m air, temperature max 98.1. GENERAL: This is a well-developed, well-nourished, very pleasant white female, in no apparent distr ess at this time. HEENT: Reveals normocephalic, nontraumatic cranium. Pupils are equal, round, and reactive. Extrao cular movements are intact. Nose and throat are slightly dry. NECK: Supple, without masses, nodes or bruits. LUNGS: Chest clear to auscultation, no rales, rhonchi, wheezes are heard. CARDIOVASCULAR: Heart reveals a regular rate and rhythm without murmurs, gallops or rubs. ABDOMEN: Obese, soft, nontender, without organomegaly. Normal bowel sounds are noted. No rebound or guarding is noted. GENITOURINARY: Deferred. EXTREMITIES: Reveal no clubbing, cyanosis or edema, just generalized weakness. The patient was tod ay again walking in the halls and doing a much better job. ASSESSMENT: 1. Hypertension. 2. Hypothyroidism. 3. Generalized weakness. 4. Rheumatoid arthritis. 5. Stomach cancer, status post resection. 6. B12 deficiency with megaloblastic anemia. 7. Atrial septal defect. 8. Mitral regurgitation. 9. Arthritis. 10. Seizure disorder. 11. Generalized weakness. 12. Debility. 13. Renal mass on CT. 14. Hypercholesterolemia. 15. Hypothyroidism. 16. Sensory neuropathy. PLAN: 1. The patient will be discharged to [facility] tomorrow. 2. Continue physical therapy and occupational therapy. 3. Continue deep venous thrombosis and stress ulcer prophylaxis. 4. Continue decubitus precautions. 5. Watch for seizures. 6. The patient is off the Dilantin. 7. Continue phenobarbital. 8. Continue thyroid medications. 9. Keep the patient out of bed as much as possible, so she can increase her strength.
[2016-11-24] MEDS: Multivitamin W/ Minerals 1 TAB PO SCH (08:50)
[2016-11-24] MEDS: Clopidogrel Bisulfate 75 MG TAB PO SCH (08:51)
[2016-11-24] MEDS: Saccharomyces boulardii 250 MG CAP PO SCH (08:51)
[2016-11-24 08:56] VITALS: BP 169/71
[2016-11-24] MEDS: PHENobarbital 32.4 MG TAB PO SCH (08:56)
[2016-11-24 09:53] VITALS: TEMP 96
--- NOTE | 2016-11-25 00:32 | DIS ---
DATE OF ADMISSION: 11/05/2016 DATE OF DISCHARGE: 11/24/2016 HISTORY OF PRESENT ILLNESS: Ms. Drake is a 76-year-old white female with extreme weakness and rh eumatoid arthritis. She had some significant deficits and was actually seen at [facility] for several weeks. She was to come and supposed to go to [facility] for physical thera py, but her decided to take her home. She did very poorly at home and actually eventually s topped walking. After a couple weeks, she was transferred to [facility] for physi gloria therapy and occupational therapy. The patient has done exceedingly well with physical therapy and occupational therapy, and walking. She has a little difficulty getting up at times. Her memory is much improved. She still needs some cueing but is much improved. She has reached maximum medical benefit here and is ready for dischar . It is my understanding that she will be going to the [facility] for continued physical therapy and occupa tional therapy. PHYSICAL EXAMINATION: GENERAL: This is a well-developed, well-nourished, very pleasant white female, in no apparent distr ess at this time. VITAL SIGNS: This morning revealed blood pressure 169/71, pulse 58-76, respirations 16-18, O2 sat 9 6-98% on room air, T-max 97.6. HEENT: Reveals normocephalic, nontraumatic cranium. The pupils are equal, round, and reactive. Ex traocular motions intact. Nose and throat are slightly dry. NECK: Supple, without masses, nodes or bruits. CHEST: Clear to auscultation. No rales, rhonchi, wheeze or cough was heard. HEART: Reveals a regular rate and rhythm without murmurs, gallops, or rubs. ABDOMEN: Obese, soft, nontender, without organomegaly. Normal bowel sounds are noted. No rebound or guarding is noted. GENITOURINARY: Deferred. EXTREMITIES: No clubbing, cyanosis or edema, just generalized weakness. The patient is again seen today walking, although, doing a much better job assessment. DISCHARGE MEDICATIONS: Include the following, Tylenol 500 mg q. 6 hours p.r.n. mild fever or pain, Norvasc 2.5 mg daily, aspirin 81 mg daily, Klonopin p.r.n. seizures 0.5 mg to 1 mg, Plavix 75 mg horace ly, vitamin B12 of 1000 mcg IM every 28 days, Robitussin-DM p.r.n. cough, multivitamin with iron 1 a day, Imodium 2 mg p.r.n. diarrhea, milk of magnesia p.r.n. constipation, Zofran 4 mg p.r.n. nausea and vomiting, phenobarbital 48.6 mg each evening and 64.8 mg each morning about 12 hours apart, Eli astor 250 mg each day, Zoloft 50 mg each day, and [place] Thyroid 60 mg every morning. The patient has significant medical problems of which the most important is her seizure disorder julia ruiz is well controlled on phenobarbital at this time. Unfortunately, she had multiple seizures and w as in status epilepticus, therefore, she ever went to [facility] and there was difficulty controlli ng the seizures at that time and that when she became so weak. PAST MEDICAL HISTORY: 1. Seizure disorder. 2. Hypertension. 3. Hypothyroidism. 4. Rheumatoid arthritis. 5. Stomach cancer, status post resection. 6. Atrial septal defect. 7. Mitral valve regurgitation. 8. Arthritis. 9. Generalized weakness. 10. 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 11. Renal mass found on CT scan report 2014. 12. Hyperlipidemia. 13. Sensory neuropathy. 14. Generalized weakness, debility. PLAN: 1. The patient will be transferred to the [facility] for physical therapy and occupational therapy. 2. The patient will continue with speech therapy. 3. The patient will continue with present medicines as listed above. 4. Follow the patient closely for seizure disorder. 5. Follow the patient's thyroid. 6. Follow the patient's blood pressure. 7. Follow the patient for stress ulcer and decubitus and use prophylaxis for that. 8. Deep venous thrombosis prophylaxis.
== END 2016-11-24 13:00 | DRG 948 ==
LOC: NAV ACUTE 11:34
PROVIDERS: ADMIT Family Medicine; ATTEND Family Medicine
DX: R53.1 Weakness (principal); I69.351 Hemiplegia and hemiparesis following cerebral infarction affecting right dominant side; D51.1 Vitamin B12 deficiency anemia due to selective vitamin B12 malabsorption with proteinuria; G62.9 Polyneuropathy, unspecified; Q21.1 Atrial septal defect; R53.81 Other malaise; G40.909 Epilepsy, unspecified, not intractable, without status epilepticus; M06.9 Rheumatoid arthritis, unspecified; I10 Essential (primary) hypertension; E03.9 Hypothyroidism, unspecified; Z85.028 Personal history of other malignant neoplasm of stomach; M19.90 Unspecified osteoarthritis, unspecified site; E78.5 Hyperlipidemia, unspecified; G25.2 Other specified forms of tremor; I34.0 Nonrheumatic mitral (valve) insufficiency
CPT/HCPCS: 36415; 80053; 80184; 80185; 81001; 82607; 83880; 84134; 85025; 87086; G9162-GN-CK; G9163-GN-CJ

== ENCOUNTER 2017-06-13 16:39 | Outpatient (CLI) | payer MEDICARE, OTHER | END 2017-06-13 16:40 | disposition home or self-care (01) | LOC: NAV LABSP 16:39 | PROVIDERS: ATTEND Family Medicine | DX: L03.031 Cellulitis of right toe (principal) | CPT/HCPCS: 87070; 87077; 87186; 87205 ==